=== PATIENT | male | born 1950 | race Hispanic/Latino ===

== ENCOUNTER 2017-05-23 08:10 | Day surgery (SDC) | payer OTHER, MEDICARE ==
[2017-05-21 15:35] VITALS: BP 145/56
[2017-05-21 15:38] LABS: BASOPHILS % (AUTO) 1.1 % (0.0-5.0); EOSINOPHILS % (AUTO) 4.3 % (0.0-8.0); HEMATOCRIT 36.6 % (42-54); LYMPHOCYTES % (AUTO) 29.6 % (21.0-51.0); MEAN CORPUSCULAR HEMOGLOBIN 33.2 pg (27.0-33.0); MEAN CORPUSCULAR HGB CONC 34.1 g/dL (32.0-36.0); MEAN CORPUSCULAR VOLUME 97.5 fL (79-99); MONOCYTES % (AUTO) 7.6 % (3.0-13.0); NEUTROPHILS % (AUTO) 57.4 % (40.0-77.0); NUCLEATED RED BLOOD CELLS 0.1 % (0.0-0.19); PLATELET COUNT (AUTO) 309 K/uL (130-400); RED BLOOD CELL COUNT(AUTO) 3.75 MIL/uL (4.50-6.20); RED CELL DISTRIBUTION WIDTH 13.9 % (11.0-15.5); WHITE BLOOD COUNT (AUTO) 7.4 K/uL (4.8-10.8)
[2017-05-21 16:14] LABS: CREATININE 1.2 mg/dL (0.5-1.5); POTASSIUM 4.3 mmol/L (3.5-5.1)
[2017-05-23] VITALS (18 sets, daily range): BP systolic 120–154; BP diastolic 48–84
[~2017-05-23] VITALS: Ht 190.5 cm; Wt 123.0 kg
[2017-05-23] MEDS: CEFTRIAXONE SODIUM 1 GM IVP SCH ×2 (06:00→11:07)
[~2017-05-23 08:10] MED LIST: LOSA1TAB54 PO; METF500T6 PO; METO50TA18 PO; PRAV10TA39 PO; SILO8CAP PO; iron PO
[2017-05-23] MEDS ORDERED: SODIUM CHLORIDE 0.9% 1000ML 1,000 ML IV ONE (09:13)
[2017-05-23] MEDS ORDERED: FENTANYL CITRATE PF 50 MCG/1 ML 2ML VIAL ONE ×3 (11:07→12:08)
[2017-05-23] MEDS ORDERED: MIDAZOLAM HCL 1 MG/ML 2ML VIAL ONE (11:07)
[2017-05-23] MEDS ORDERED: PROPOFOL 10 MG/ML 20ML VIAL IV ONE ×2 (11:07→11:27)
[2017-05-23] MEDS ORDERED: EPHEDRINE SULFATE 50 MG/ML AMPULE ONE (11:20)
[2017-05-23] MEDS ORDERED: MORPHINE SULFATE 10 MG/ML 1ML SYG ONE (11:22)
[2017-05-23] MEDS ORDERED: LIDOCAINE PF 2% 5ML ABBOJECT ONE (11:58)
[2017-05-23] MEDS ORDERED: MEPERIDINE-PF 25 MG/ML SYG ONE (13:13)
[2017-05-23] MEDS ORDERED: PHENAZOPYRIDINE HCL 200 MG TABLET ONE (14:21)
[2017-05-23] MEDS ORDERED: ACETAMINOPHEN-CODEINE 300/30MG TAB ONE (14:30)
== END 2017-05-23 15:40 | disposition home or self-care (01) ==
LOC: DAH 08:10
PROVIDERS: ATTEND Urology
DX: N35.9 Urethral stricture, unspecified (principal); I10 Essential (primary) hypertension; E11.9 Type 2 diabetes mellitus without complications; G89.29 Other chronic pain; Z79.899 Other long term (current) drug therapy; Z79.84 Long term (current) use of oral hypoglycemic drugs; I21.3 ST elevation (STEMI) myocardial infarction of unspecified site
CPT/HCPCS: 36415; 52281; 80048; 82948; 85025; 93005; A4218; A4354; A4358; A4510; A4600; C1769; J0696; J2001; J2175; J2250; J2270; J2704 ×2; J3010 ×3; J3490; J7030

== ENCOUNTER 2017-06-03 17:56 | Emergency (ER) | payer OTHER, MEDICARE | END 2017-06-03 18:27 | disposition home or self-care (01) | LOC: EDH 17:56 | DX: T83.091A Other mechanical complication of indwelling urethral catheter, initial encounter (principal); R33.9 Retention of urine, unspecified; I25.10 Atherosclerotic heart disease of native coronary artery without angina pectoris; E78.5 Hyperlipidemia, unspecified; I10 Essential (primary) hypertension; Z90.49 Acquired absence of other specified parts of digestive tract; Z98.890 Other specified postprocedural states; Z72.0 Tobacco use ==

== ENCOUNTER 2017-06-27 08:02 | Day surgery (SDC) | payer OTHER, MEDICARE ==
[2017-06-25 13:47] VITALS: BP 140/55
[2017-06-25 13:50] LABS: BASOPHILS % (AUTO) 0.8 % (0.0-5.0); EOSINOPHILS % (AUTO) 3.1 % (0.0-8.0); HEMATOCRIT 31.7 % (42-54); MEAN CORPUSCULAR HEMOGLOBIN 31.8 pg (27.0-33.0); MEAN CORPUSCULAR HGB CONC 33.8 g/dL (32.0-36.0); MONOCYTES % (AUTO) 12.3 % (3.0-13.0); NEUTROPHILS % (AUTO) 63.8 % (40.0-77.0); PLATELET COUNT (AUTO) 315 K/uL (130-400); RED BLOOD CELL COUNT(AUTO) 3.37 MIL/uL (4.50-6.20); RED CELL DISTRIBUTION WIDTH 14.5 % (11.0-15.5); WHITE BLOOD COUNT (AUTO) 7.1 K/uL (4.8-10.8)
[2017-06-25 13:56] LABS: CREATININE 1.2 mg/dL (0.5-1.5); POTASSIUM 3.4 mmol/L (3.5-5.1)
[~2017-06-27] VITALS: Ht 188 cm; Wt 123.4 kg
[2017-06-27] VITALS (17 sets, daily range): BP systolic 106–140; BP diastolic 48–66
[~2017-06-27 08:02] MED LIST changes: +CEFTRIAXONE SODIUM 1 GM IVP SCH
[2017-06-27] MEDS ORDERED: SODIUM CHLORIDE 0.9% 1000ML 1,000 ML IV ONE (08:51)
[2017-06-27] MEDS ORDERED: CEFTRIAXONE SODIUM 1 GM ONE (08:52)
[2017-06-27] MEDS ORDERED: PROPOFOL 10 MG/ML 20ML VIAL IV ONE (09:29)
[2017-06-27] MEDS ORDERED: FENTANYL CITRATE PF 50 MCG/1 ML 2ML VIAL ONE (09:29)
[2017-06-27] MEDS ORDERED: MIDAZOLAM HCL 1 MG/ML 2ML VIAL ONE (09:29)
[2017-06-27] MEDS ORDERED: EPHEDRINE SULFATE 50 MG/ML AMPULE ONE (09:45)
[2017-06-27] MEDS ORDERED: MEPERIDINE-PF 25 MG/ML SYG ONE ×2 (10:29→10:36)
[2017-06-27] MEDS ORDERED: CEPH500B PO (11:18)
[2017-06-27] MEDS ORDERED: PHEN-934 PO (11:18)
[2017-06-27] MEDS ORDERED: TYL3 PO (11:23)
[2017-06-27] MEDS ORDERED: PHENAZOPYRIDINE HCL 200 MG TABLET ONE (11:28)
== END 2017-06-27 12:07 | disposition home or self-care (01) ==
LOC: DAH 08:02
PROVIDERS: ATTEND Urology
DX: N35.9 Urethral stricture, unspecified (principal); R33.9 Retention of urine, unspecified; I10 Essential (primary) hypertension; E11.9 Type 2 diabetes mellitus without complications; G89.29 Other chronic pain; Z79.899 Other long term (current) drug therapy; I25.10 Atherosclerotic heart disease of native coronary artery without angina pectoris; E66.9 Obesity, unspecified
CPT/HCPCS: 36415 ×2; 52275; 80048; 82948 ×2; 84132; 85025; 93005; A4218; A4344; A4354; A4358; A4510; A4600; C1769; J0696; J2175 ×2; J2250; J2704; J3010; J3490; J7030

== ENCOUNTER → 2019-01-05 | Outpatient (CLI) | payer OTHER, MEDICARE ==
[~2019-01-05] MED LIST changes: -CEFTRIAXONE SODIUM 1 GM IVP SCH; +CEPH500B PO; +METF-444 PO; -METF500T6 PO; +PHEN-846 PO; -SILO8CAP PO; +SILO8CAP2 PO; +TYL3 PO
== END | disposition home or self-care (01) ==
LOC: RAH 11:10
PROVIDERS: ATTEND Internal Medicine Gastroenterology
DX: D50.0 Iron deficiency anemia secondary to blood loss (chronic) (principal); R63.4 Abnormal weight loss; R11.0 Nausea
CPT/HCPCS: 71046

== ENCOUNTER → 2019-04-20 | Outpatient (CLI) | payer OTHER, MEDICARE | END | disposition home or self-care (01) | LOC: RAH 12:03 | PROVIDERS: ATTEND Internal Medicine | DX: I70.203 Unspecified atherosclerosis of native arteries of extremities, bilateral legs (principal); R25.2 Cramp and spasm; R60.0 Localized edema | CPT/HCPCS: 93925; 93970 ==

== ENCOUNTER 2019-11-17 09:50 | Emergency (ER) | payer OTHER, MEDICARE | END 2019-11-17 10:15 | disposition left against medical advice (07) | LOC: EDH 09:50 | DX: R79.9 Abnormal finding of blood chemistry, unspecified (principal); I10 Essential (primary) hypertension; E78.5 Hyperlipidemia, unspecified; I25.10 Atherosclerotic heart disease of native coronary artery without angina pectoris; Z90.49 Acquired absence of other specified parts of digestive tract; Z98.890 Other specified postprocedural states; Z53.21 Procedure and treatment not carried out due to patient leaving prior to being seen by health care provider | CPT/HCPCS: 99281 ==

== ENCOUNTER 2020-12-12 18:44 | Observation (INO) | payer OTHER, MEDICARE ==
[~2020-12-12] VITALS: Ht 190.5 cm; Wt 122.5 kg
[2020-12-12 19:44] LABS: BASOPHILS % (AUTO) 0.9 % (0.0-5.0); EOSINOPHILS % (AUTO) 1.4 % (0.0-8.0); HEMATOCRIT 37.2 % (42-54); LYMPHOCYTES % (AUTO) 18.3 % (21.0-51.0); MEAN CORPUSCULAR HEMOGLOBIN 32.6 pg (27.0-33.0); MEAN CORPUSCULAR HGB CONC 32.8 g/dL (32.0-36.0); MEAN CORPUSCULAR VOLUME 99.5 fL (79-99); MONOCYTES % (AUTO) 8.9 % (3.0-13.0); PLATELET COUNT (AUTO) 207 K/uL (130-400); RED BLOOD CELL COUNT(AUTO) 3.74 MIL/uL (4.50-6.20); RED CELL DISTRIBUTION WIDTH 13.2 % (11.0-15.5); WHITE BLOOD COUNT (AUTO) 6.5 K/uL (4.8-10.8)
[2020-12-12 19:59] LABS: INR 1.06 (0.85-1.15); PROTHROMBIN TIME 11.5 SEC (9.6-11.6)
[2020-12-12 20:00] LABS: CREATININE 1.3 mg/dL (0.5-1.5); PARTIAL THROMBOPLASTIN TIME 24.9 SEC (26.3-35.5)
[2020-12-12 20:04] LABS: ALBUMIN 3.3 g/dL (3.5-5.0); B-TYPE NATRIURETIC PEPTIDE 165 pg/mL (0-100); BILIRUBIN,TOTAL 0.3 mg/dL (0.2-1.0); TOTAL PROTEIN, SERUM 6.5 g/dL (6.0-8.3)
[2020-12-12] MEDS ORDERED: IOHEXOL 350 MG/ML 100ML INFUS..BTL IV ONE (21:28)
[2020-12-12] MEDS ORDERED: 0.9% NACL 500ML IV.SOLN 500 ML IV ONE (21:30)
[2020-12-12] MEDS ORDERED: ACETAMINOPHEN 325 MG TAB PO PRN ×2 (23:30)
[2020-12-12] MEDS ORDERED: ONDANSETRON 4MG INJ IVP PRN (23:30)
[2020-12-13 00:38] LABS: APPEARANCE,URINE Clear (CLEAR); BILIRUBIN,URINE Negative (NEGATIVE); COLOR,URINE Dark Yellow (YELLOW); GLUCOSE, URINE (UA) Negative (NEGATIVE); KETONES,URINE Trace mg/dL (NEGATIVE); LEUKOCYTE ESTERASE ,URINE Moderate (NEGATIVE); NITRATE,URINE Negative (NEGATIVE); OCCULT BLOOD,URINE Negative (NEGATIVE); PH,URINE 5.5 (5.0-8.0); PROTEIN,URINE Trace mg/dL (NEGATIVE)
[2020-12-13 00:48] LABS: RBC,URINE 0-1 /HPF (0-1)
[2020-12-13 00:49] LABS: BACTERIA,URINE Few /HPF (None Seen); SQUAMOUS EPITHELIAL CELL,UR Moderate /HPF (0-2)
[2020-12-13 00:51] LABS: HYALINE CASTS, URINE 0-1 /LPF (0-1 /LPF)
[2020-12-13 01:08] LABS: AMPHET/METH SCREEN,URINE NEGATIVE (NEGATIVE); BARBITURATE SCREEN, URINE NEGATIVE (NEGATIVE); BENZODIAZEPINES SCREEN,URINE NEGATIVE (NEGATIVE); CANNABINOID SCREEN,URINE POSITIVE (NEGATIVE); COCAINE SCREEN,URINE NEGATIVE (NEGATIVE); OPIATE SCREEN,URINE NEGATIVE (NEGATIVE); PHENCYCLIDINE SCREEN,URINE NEGATIVE (NEGATIVE)
[2020-12-13] MEDS: INSULIN HUMULIN R 100 UNIT/ML 3ML SQ SCH ×2 (07:30→11:30)
[2020-12-13] MEDS ORDERED: LACTULOSE 20 GM/30 ML UDCUP PO PRN (09:00)
[2020-12-13] MEDS ORDERED: ONDANSETRON 4MG INJ IV PRN (09:00)
[2020-12-13] MEDS ORDERED: ACETAMINOPHEN 325 MG TAB PO PRN ×2 (09:00)
[2020-12-13] MEDS ORDERED: MAG/ALUM/SIMETH 30 ML UDCUP PO PRN (09:00)
[2020-12-13] MEDS ORDERED: 0.9%NACL 1000ML 1,000 ML IV SCH (09:00)
[2020-12-13] MEDS ORDERED: DiphenhydrAMINE HCL 50 MG/ML VIAL IV PRN (09:00)
[2020-12-13] MEDS ORDERED: ENOXAPARIN SODIUM 30 MG/0.3 ML SQ SCH (09:00)
[2020-12-13] MEDS ORDERED: DIPHENHYDRAMINE HCL 25 MG CAPSULE PO PRN (09:00)
[2020-12-13] MEDS ORDERED: AEC81 PO (09:18)
[2020-12-13] MEDS ORDERED: PRAV40TA3 PO (09:18)
[2020-12-13] MEDS ORDERED: FLUO20CA35 PO (09:18)
[2020-12-13] MEDS ORDERED: ESOM40CA54 PO (09:18)
[2020-12-13] MEDS ORDERED: MEMA10TA55 PO (09:18)
[2020-12-13] MEDS ORDERED: FERR324T4 PO (09:18)
[2020-12-13] MEDS ORDERED: TAMS-1 PO (09:18)
[2020-12-13] MEDS ORDERED: VITA1CAP PO (09:18)
[2020-12-13] MEDS ORDERED: FLUT1BLS15 IH (09:18)
[2020-12-13] MEDS ORDERED: CALC-125 PO (09:18)
[2020-12-13] MEDS ORDERED: NITR0.4T50 SL (09:18)
[2020-12-13] MEDS ORDERED: OLME20TA22 PO ×2 (09:18→15:00)
[2020-12-13] MEDS ORDERED: ALBU8.5H8 IH (09:18)
[2020-12-13] MEDS ORDERED: CPAP NS (09:19)
[2020-12-13] MEDS ORDERED: LIDOCAINE HCL-MPF 1% 2ML VIAL IV PRN (09:30)
[2020-12-13] MEDS ORDERED: POTASSIUM CHLORIDE 10% ELIXIR 20 MEQ/15 ML UDCUP PO PRN (09:30)
[2020-12-13] MEDS ORDERED: KCL 20 MEQ ERTAB PO PRN (09:30)
[2020-12-13] MEDS ORDERED: GLUCAGON 1MG KIT 1 MG ML IM PRN (09:30)
[2020-12-13] MEDS ORDERED: DEXTROSE 50%-WATER 50 ML DISP.SYRIN IV PRN (09:30)
[2020-12-13] MEDS ORDERED: POTASSIUM CHLORIDE 20MEQ/100ML 100 ML IV PRN (09:30)
[2020-12-13] MEDS ORDERED: INSULIN HUMULIN R 100 UNIT/ML 3ML SQ SCH (11:30)
[2020-12-13 11:54] VITALS: BP 149/64
[2020-12-13] MEDS ORDERED: ALBUTEROL INHALER 90MCG/INH IH PRN (14:00)
[2020-12-13] MEDS ORDERED: NITROGLYCERIN 0.4 MG SL TAB SL PRN (14:00)
[2020-12-13] MEDS ORDERED: FERROUS SULFATE 325 MG TABLET.DR PO SCH (21:00)
[2020-12-14] MEDS ORDERED: FLUOXETINE HCL 20 MG CAPSULE PO SCH (09:00)
[2020-12-14] MEDS ORDERED: METFORMIN HCL 500 MG TABLET PO SCH (09:00)
[2020-12-14] MEDS ORDERED: CALCIUM CARB 500MG PO SCH (09:00)
[2020-12-14] MEDS ORDERED: VITAMIN B COMPLEX 1 CAPSULE PO SCH (09:00)
[2020-12-14] MEDS ORDERED: PANTOPRAZOLE 40 MG TAB DR PO SCH (09:00)
[2020-12-15] MEDS ORDERED: ASPIRIN 81 MG EC TAB PO SCH (09:00)
== END 2020-12-13 16:20 | disposition home or self-care (01) ==
LOC: EDH 18:44 → EDHIP 22:57
PROVIDERS: ADMIT Internal Medicine; ATTEND Internal Medicine
DX: R55 Syncope and collapse (principal); Z20.822 Contact with and (suspected) exposure to COVID-19; G47.30 Sleep apnea, unspecified; E78.2 Mixed hyperlipidemia; I13.0 Hypertensive heart and chronic kidney disease with heart failure and stage 1 through stage 4 chronic kidney disease, or unspecified chronic kidney disease; I50.32 Chronic diastolic (congestive) heart failure; N18.2 Chronic kidney disease, stage 2 (mild); E11.22 Type 2 diabetes mellitus with diabetic chronic kidney disease; I25.10 Atherosclerotic heart disease of native coronary artery without angina pectoris; I42.9 Cardiomyopathy, unspecified; E11.42 Type 2 diabetes mellitus with diabetic polyneuropathy; E11.40 Type 2 diabetes mellitus with diabetic neuropathy, unspecified; I48.0 Paroxysmal atrial fibrillation; D68.59 Other primary thrombophilia; M48.9 Spondylopathy, unspecified; M48.062 Spinal stenosis, lumbar region with neurogenic claudication; N40.0 Benign prostatic hyperplasia without lower urinary tract symptoms; G47.00 Insomnia, unspecified; D64.9 Anemia, unspecified; R32 Unspecified urinary incontinence; I95.9 Hypotension, unspecified; I70.90 Unspecified atherosclerosis; F11.20 Opioid dependence, uncomplicated; F32.9 Major depressive disorder, single episode, unspecified; E78.00 Pure hypercholesterolemia, unspecified; R00.1 Bradycardia, unspecified; D09.19 Carcinoma in situ of other urinary organs; F11.21 Opioid dependence, in remission; F17.200 Nicotine dependence, unspecified, uncomplicated; C64.1 Malignant neoplasm of right kidney, except renal pelvis; D50.9 Iron deficiency anemia, unspecified; G31.9 Degenerative disease of nervous system, unspecified; G95.9 Disease of spinal cord, unspecified; I25.2 Old myocardial infarction; I70.0 Atherosclerosis of aorta; J44.9 Chronic obstructive pulmonary disease, unspecified; M48.061 Spinal stenosis, lumbar region without neurogenic claudication; M54.16 Radiculopathy, lumbar region; M96.1 Postlaminectomy syndrome, not elsewhere classified; Z79.899 Other long term (current) drug therapy; Z98.890 Other specified postprocedural states; Z79.84 Long term (current) use of oral hypoglycemic drugs; Z79.82 Long term (current) use of aspirin; Z85.528 Personal history of other malignant neoplasm of kidney; Z90.49 Acquired absence of other specified parts of digestive tract; Z98.42 Cataract extraction status, left eye
CPT/HCPCS: 36415 ×2; 70450; 71045; 71275; 80053; 80305; 81001; 82550 ×2; 82948 ×2; 83735; 83874; 83880; 84484 ×2; 85025; 85378; 85610; 85730; 87077; 87088; 87186; 87635; 93005; 93880; 96360; 96361; 96372; 99285; C9803; G0378 ×7; J1650; J7030; J7040; Q9967

== ENCOUNTER → 2021-10-09 | Outpatient (CLI) | payer OTHER, MEDICARE ==
[~2021-10-09] MED LIST changes: +AEC81 PO; +ALBU8.5H8 IH; +CALC-125 PO; -CEPH500B PO; +CPAP NS; +ESOM40CA54 PO; +FERR324T4 PO; +FLUO20CA36 PO; +FLUT1BLS15 IH; -LOSA1TAB54 PO; +MEMA10TA55 PO; -METF-444 PO; -METO50TA18 PO; +NITR0.4T50 SL; +OLME20TA22 PO; -PHEN-846 PO; -PRAV10TA39 PO; +PRAV40TA3 PO; -SILO8CAP2 PO; +TAMS-1 PO; -TYL3 PO; +VITA1CAP PO; -iron PO
== END | disposition home or self-care (01) ==
LOC: RAH 10:34
PROVIDERS: ATTEND Internal Medicine
DX: J44.9 Chronic obstructive pulmonary disease, unspecified (principal)
CPT/HCPCS: 71046

== ENCOUNTER 2022-10-21 07:48 | Day surgery (SDC) | payer OTHER, MEDICARE ==
[2022-10-17 12:58] LABS: BASOPHILS # (AUTO) 0.05 K/uL (0.00-0.20); BASOPHILS % (AUTO) 0.9 % (0.0-5.0); EOSINOPHILS # (AUTO) 0.13 K/uL (0.00-0.70); EOSINOPHILS % (AUTO) 2.3 % (0.0-8.0); HEMATOCRIT 40.9 % (42-54); IMMATURE GRANULOCYTE ABSOLUTE 0.04 K/uL (0-1); LYMPHOCYTES # (AUTO) 1.2 K/uL (1.0-4.8); MONOCYTES # (AUTO) 0.5 K/uL (0.1-1.0); MONOCYTES % (AUTO) 8.8 % (3.0-13.0); NEUTROPHILS # (AUTO) 3.8 K/uL (1.8-7.7); NEUTROPHILS % (AUTO) 66.3 % (40.0-77.0); PLATELET COUNT (AUTO) 212 K/uL (130-400); RED BLOOD CELL COUNT(AUTO) 4.09 MIL/uL (4.50-6.20); RED CELL DISTRIBUTION WIDTH 12.7 % (11.0-15.5); WHITE BLOOD COUNT (AUTO) 5.7 K/uL (4.8-10.8)
[2022-10-17 13:10] LABS: CREATININE 0.9 mg/dL (0.5-1.5); INR 0.94 (0.85-1.15); POTASSIUM 4.1 mmol/L (3.5-5.1)
[2022-10-17 13:11] LABS: PARTIAL THROMBOPLASTIN TIME 29.5 SEC (26.3-35.5)
[2022-10-17 13:24] LABS: APPEARANCE,URINE CLEAR (CLEAR); BILIRUBIN,URINE NEGATIVE (NEGATIVE); COLOR,URINE LIGHT-YELLOW (YELLOW); GLUCOSE, URINE (UA) NEGATIVE (NEGATIVE); KETONES,URINE NEGATIVE (NEGATIVE); LEUKOCYTE ESTERASE ,URINE 75 Leu/uL (NEGATIVE); NITRATE,URINE NEGATIVE (NEGATIVE); OCCULT BLOOD,URINE NEGATIVE (NEGATIVE); PH,URINE 6.5 (5.0-8.0); PROTEIN,URINE NEGATIVE (NEGATIVE); UROBILINOGEN,URINE 0.2 mg/dL (0.2-1.0)
[2022-10-17 13:30] LABS: ADD UA MICROSCOPIC YES
[2022-10-17 13:35] LABS: SQUAMOUS EPITHELIAL CELL,UR RARE /HPF (0-2)
[2022-10-17 14:04] LABS: B-TYPE NATRIURETIC PEPTIDE 155 pg/mL (0-100)
[2022-10-17 14:12] VITALS: BP 152/74; PULSE 63; RESP 18
[~2022-10-21] VITALS: Ht 188 cm; Wt 127.6 kg
[2022-10-21] VITALS (11 sets, daily range): BP systolic 152–174; BP diastolic 52–68; PULSE 44–83; RESP 12–20
[~2022-10-21 07:48] MED LIST changes: -AEC81 PO; -ALBU8.5H8 IH; -CALC-125 PO; -CPAP NS; +CYAN10007 IJ; -ESOM40CA54 PO; +FERR-72 PO; -FERR324T4 PO; -FLUO20CA36 PO; -FLUT1BLS15 IH; +FURO40TA5 PO; +LINA5TAB PO; +LOSA25TA41 PO; -NITR0.4T50 SL; -OLME20TA22 PO; +PANT40TA55 PO; +POTA-364 PO; -VITA1CAP PO
[2022-10-21] MEDS ORDERED: IOPAMIDOL-370 100 ML VIAL IV ONE (07:49)
[2022-10-21] MEDS ORDERED: 0.9%NACL 1000ML 1,000 ML IV ONE (09:28)
[2022-10-21] MEDS ORDERED: MEPERIDINE-PF 25 MG/ML SYG ONE (09:39)
[2022-10-21] MEDS ORDERED: NITROGLYCERIN 50MG VIAL ONE (09:39)
[2022-10-21] MEDS ORDERED: SODIUM BICARB 50MEQ 50ML VIAL 50 ML ONE (09:39)
[2022-10-21] MEDS ORDERED: HEPARIN 10,000 UNIT/10ML (1,000 UNIT/ML) VIAL ONE (09:39)
[2022-10-21] MEDS ORDERED: LIDOCAINE HCL 400MG/20ML VIAL ONE (09:39)
[2022-10-21] MEDS ORDERED: MIDAZOLAM HCL 1 MG/ML 2ML VIAL ONE (09:39)
[2022-10-21] MEDS ORDERED: GLUCAGON 1MG KIT 1 MG ML IM PRN (11:00)
[2022-10-21] MEDS ORDERED: DEXTROSE 50%-WATER 50 ML DISP.SYRIN IV PRN (11:00)
[2022-10-21] MEDS ORDERED: 0.9%NACL 1000ML 1,000 ML IV SCH (11:00)
[2022-10-21] MEDS ORDERED: INSULIN HUMULIN R 100 UNIT/ML 3ML SQ SCH (11:30)
== END 2022-10-21 17:10 | disposition home or self-care (01) ==
LOC: DAH 07:48
PROVIDERS: ATTEND Internal Medicine Cardiovascular Disease
DX: I35.0 Nonrheumatic aortic (valve) stenosis (principal); I25.10 Atherosclerotic heart disease of native coronary artery without angina pectoris; I25.82 Chronic total occlusion of coronary artery; I11.0 Hypertensive heart disease with heart failure; I50.32 Chronic diastolic (congestive) heart failure; E11.9 Type 2 diabetes mellitus without complications; F17.200 Nicotine dependence, unspecified, uncomplicated; J44.9 Chronic obstructive pulmonary disease, unspecified; G47.33 Obstructive sleep apnea (adult) (pediatric); I25.2 Old myocardial infarction; Z98.890 Other specified postprocedural states; Z86.010 Personal history of colon polyps; Z90.49 Acquired absence of other specified parts of digestive tract; Z82.3 Family history of stroke; Z79.899 Other long term (current) drug therapy; Z79.01 Long term (current) use of anticoagulants
CPT/HCPCS: 80048; 83880; 85025; 85610; 85730; 87088; 81001; 36415; 71045; 93005; 93460; 82948; C1769 ×2; C1894 ×3; C1760; C1893; Q9967; J3490 ×3; J7030; J2250; J2175; J1644; A4215; A4222; A4221; A4663; A4216; A4606; A4223 ×3; 99156; 99157

== ENCOUNTER 2023-01-06 20:20 | Emergency (ER) | payer OTHER, MEDICARE ==
[~2023-01-06] VITALS: Ht 190.5 cm; Wt 136.1 kg
[~2023-01-06 20:20] MED LIST changes: +AEC81 PO; +AMIO200T68 PO; +ATOR40TA71 PO; -FURO40TA5 PO; +FURO40TA7 PO; +METO25TA6 PO; +POLY17PO4 PO; -PRAV40TA3 PO
[2023-01-06 20:38] LABS: BASOPHILS # (AUTO) 0.05 K/uL (0.00-0.20); BASOPHILS % (AUTO) 0.8 % (0.0-5.0); EOSINOPHILS % (AUTO) 4.9 % (0.0-8.0); HEMATOCRIT 27.3 % (42-54); IMMATURE GRANULOCYTE ABSOLUTE 0.06 K/uL (0-1); LYMPHOCYTES # (AUTO) 1.9 K/uL (1.0-4.8); LYMPHOCYTES % (AUTO) 30.8 % (21.0-51.0); MEAN CORPUSCULAR HEMOGLOBIN 29.6 pg (27.0-33.0); MEAN CORPUSCULAR HGB CONC 29.3 g/dL (32.0-36.0); MEAN CORPUSCULAR VOLUME 101.1 fL (79-99); MONOCYTES # (AUTO) 0.6 K/uL (0.1-1.0); MONOCYTES % (AUTO) 10.2 % (3.0-13.0); NEUTROPHILS # (AUTO) 3.2 K/uL (1.8-7.7); NEUTROPHILS % (AUTO) 52.3 % (40.0-77.0); PLATELET COUNT (AUTO) 139 K/uL (130-400); RED CELL DISTRIBUTION WIDTH 14.1 % (11.0-15.5); WHITE BLOOD COUNT (AUTO) 6.2 K/uL (4.8-10.8)
[2023-01-06 20:48] LABS: CREATININE 1.8 mg/dL (0.5-1.5); POTASSIUM 3.3 mmol/L (3.5-5.1)
[2023-01-06 20:50] LABS: APPEARANCE,URINE CLEAR (CLEAR); BILIRUBIN,URINE NEGATIVE (NEGATIVE); COLOR,URINE COLORLESS (YELLOW); GLUCOSE, URINE (UA) 500 mg/dL (NEGATIVE); KETONES,URINE NEGATIVE (NEGATIVE); LEUKOCYTE ESTERASE ,URINE NEGATIVE Leu/uL (NEGATIVE); NITRATE,URINE NEGATIVE (NEGATIVE); OCCULT BLOOD,URINE NEGATIVE (NEGATIVE); PH,URINE 6.5 (5.0-8.0); PROTEIN,URINE NEGATIVE (NEGATIVE); UROBILINOGEN,URINE 0.2 mg/dL (0.2-1.0)
[2023-01-06 20:51] LABS: ADD UA MICROSCOPIC YES
[2023-01-06 20:53] LABS: BACTERIA,URINE RARE /HPF (None Seen); MUCUS,URINE RARE LPF (None Seen); RBC,URINE 0-1 /HPF (0-1); SQUAMOUS EPITHELIAL CELL,UR RARE /HPF (0-2); WBC,URINE 0-1 /HPF (0-1)
[2023-01-06 20:54] LABS: ALBUMIN 3.3 g/dL (3.5-5.0); BILIRUBIN,TOTAL 0.3 mg/dL (0.2-1.0); TOTAL PROTEIN, SERUM 7.2 g/dL (6.0-8.3)
[2023-01-06 20:57] LABS: B-TYPE NATRIURETIC PEPTIDE 919 pg/mL (0-100)
[2023-01-06] MEDS ORDERED: MECLIZINE HCL 25 MG TABLET PO ONE (21:00)
[2023-01-06] MEDS ORDERED: POTASSIUM BICARB/CIT AC 25 MEQ TABLET.EFF PO ONE (22:30)
[2023-01-06 22:39] LABS: MAGNESIUM 2.3 mg/dL (1.80-2.40); THYROID STIMULATING HORMONE 83.76 uIU/mL (0.36-3.74)
[2023-01-06] MEDS ORDERED: LEVO25TA9 PO (23:02)
[2023-01-06 23:38] VITALS: BP 137/73; PULSE 56; RESP 14; O2SAT 99
== END 2023-01-06 23:40 | disposition home or self-care (01) ==
LOC: EDH 20:20
DX: E87.6 Hypokalemia (principal); E03.9 Hypothyroidism, unspecified; F17.200 Nicotine dependence, unspecified, uncomplicated; I25.10 Atherosclerotic heart disease of native coronary artery without angina pectoris; Z79.82 Long term (current) use of aspirin; Z79.899 Other long term (current) drug therapy; Z95.1 Presence of aortocoronary bypass graft
CPT/HCPCS: 36415; 70450; 71045; 80053; 81001; 82550; 83605; 83735; 83874; 83880; 84443; 84484; 85025; 93005

== ENCOUNTER 2024-01-16 06:33 | Day surgery (SDC) | payer OTHER, MEDICARE ==
[2024-01-14 11:22] VITALS: BP 127/56; PULSE 51; RESP 18; TEMP 98.4
[2024-01-14 11:50] LABS: BASOPHILS # (AUTO) 0.06 K/uL (0.00-0.20); BASOPHILS % (AUTO) 0.9 % (0.0-5.0); EOSINOPHILS # (AUTO) 0.22 K/uL (0.00-0.70); EOSINOPHILS % (AUTO) 3.3 % (0.0-8.0); HEMATOCRIT 39.6 % (42-54); IMMATURE GRANULOCYTE ABSOLUTE 0.02 K/uL (0-1); LYMPHOCYTES # (AUTO) 1.4 K/uL (1.0-4.8); LYMPHOCYTES % (AUTO) 20.3 % (21.0-51.0); MEAN CORPUSCULAR HEMOGLOBIN 32.1 pg (27.0-33.0); MEAN CORPUSCULAR HGB CONC 31.6 g/dL (32.0-36.0); MEAN CORPUSCULAR VOLUME 101.5 fL (79-99); MONOCYTES # (AUTO) 0.5 K/uL (0.1-1.0); MONOCYTES % (AUTO) 7.1 % (3.0-13.0); NEUTROPHILS # (AUTO) 4.5 K/uL (1.8-7.7); NEUTROPHILS % (AUTO) 68.1 % (40.0-77.0); PLATELET COUNT (AUTO) 200 K/uL (130-400); RED CELL DISTRIBUTION WIDTH 13.6 % (11.0-15.5); WHITE BLOOD COUNT (AUTO) 6.7 K/uL (4.8-10.8)
[2024-01-14 12:02] LABS: CREATININE 1.5 mg/dL (0.5-1.3); POTASSIUM 4.1 mmol/L (3.5-5.1)
--- NOTE | 2024-01-14 14:18 | EKG ---
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
[2024-01-16] VITALS (17 sets, daily range): BP systolic 112–152; BP diastolic 46–75; PULSE 51–92; RESP 15–21; TEMP 97.1–97.5
[~2024-01-16] VITALS: Ht 190.5 cm; Wt 124.4 kg
[~2024-01-16 06:33] MED LIST changes: +MEMA10TA21 PO; -MEMA10TA55 PO
[2024-01-16] MEDS: cefTRIAXone 1G VIAL ONE (07:36)
[2024-01-16] MEDS ORDERED: IOHEXOL-350 50ML VIAL IV ONE (08:55)
[2024-01-16] MEDS ORDERED: SUCCINYLCHOLINE CHLORIDE 20 MG/ML 10 ML VIAL ONE (09:40)
[2024-01-16] MEDS ORDERED: dexaMETHasone SOD PHOSPHATE 10MG/ML 1ML VIAL ONE (09:40)
[2024-01-16] MEDS ORDERED: LIDOCAINE PF 100MG/5ML (2%) SYRINGE 5ML ONE (09:40)
[2024-01-16] MEDS ORDERED: GLYCOPYRROLATE 0.2 MG/ML 5 ML VIAL ONE (09:40)
[2024-01-16] MEDS ORDERED: NEOSTIGMINE METHYLSULFATE 1MG/ML IV ONE (09:41)
[2024-01-16] MEDS ORDERED: FENTanyl CITRate PF 50 MCG/1 ML 2ML VIAL ONE (09:41)
[2024-01-16] MEDS ORDERED: proPOFol 10 MG/ML 20ML VIAL IV ONE ×2 (09:41→10:38)
[2024-01-16] MEDS ORDERED: rocuRONium bROMide 10MG/1ML 5ML VL ONE (09:41)
[2024-01-16] MEDS ORDERED: ePHEDrine SULFate 50 MG/ML AMPULE ONE (09:59)
[2024-01-16] MEDS ORDERED: ATROPINE 0.4MG VIAL IJ ONE (10:06)
[2024-01-16] MEDS ORDERED: MEPERIDINE-PF 25 MG/ML SYG ONE (10:42)
[2024-01-16] MEDS: 0.9%NACL 1000ML 1,000 ML IV ONE (10:57)
--- NOTE | 2024-01-16 12:02 | HMCIMG ---
UROGRAPHY RETROGRADE REASON: LT hydronephrosis,Cysto COMPARISON: None TECHNIQUE: 16 surgical spot views obtained documenting left sided retrograde ureteral procedure with stent placement. Fluoroscopy time was 4.5 minutes. IMPRESSION: 1. Documentation of left retrograde ureteral procedure with stent placement.
[2024-01-16] MEDS: PHENAZOpyridine HCL 200 MG TAB 200 MG TABLET PO ONE (12:33)
--- NOTE | 2024-01-16 12:44 | NUR ---
Patient aox4. Denies c/o pain or discomfort. Purcell Catheter clean, dry and intact. Leg bag applied securely attached to velco strap from OR. Purcell teaching and care completed with Patient and Daughter. All questions answered. Voiced understanding to precautions and follow up expectations. PIV discontinued with catheter tip intact. Full and complete Discharge instructions given to Patient and Daughter All questions answered. W/C to POV with Daughter to Home.
--- NOTE | 2024-01-17 00:46 | OP ---
DATE OF PROCEDURE: 01/16/2024 PREOPERATIVE DIAGNOSES: Left hydroureteronephrosis, history of right renal cell carcinoma, acute kidney injury. PREOPERATIVE DIAGNOSES: Left hydroureteronephrosis, history of right renal cell carcinoma, acute kidney injury, glanular hypospadias, left bladder diverticulum and benign prostatic hypertrophy. PROCEDURE PERFORMED: Cystourethroscopy, left retrograde pyelogram, insertion of left ureteral stent (30 cm x 6-Swazi). ANESTHESIA: General endotracheal anesthesia. SURGEON: Delaney Lamas M.D. PREOPERATIVE INDICATIONS: This is a 73-year-old gentleman who has been a longstanding patient. He was found to have a kidney tumor of the right renal unit which he was treated with cryosurgery successfully. On surveillance studies that being a renal sonogram, the patient was noted to have hydronephrosis of the left renal unit. A CT scan was performed which revealed tunneling of the dilatation to the level of the bladder neck. The patient had a tortuosity of the ureter and dilatation of the complete collecting system without any evidence of obstruction. There was no external compression and no stone or tumor visible on the CT scan. He presents today for investigation. His PSA has been 0.3 on last evaluation and his creatinine was 1.1 with a GFR of 62; however on day of surgery, his creatinine had increased to 1.5 and his filtration rate had decreased to 48. Preoperatively, he received Rocephin 1 g intravenously. Additionally, the patient denies any left flank pain or tenderness. He does have chronic lower back pain. DESCRIPTION OF PROCEDURE: The patient was brought to the operating room and placed in the supine position. Following adequate general endotracheal anesthesia, he was sterilely draped and prepped in the usual fashion in the dorsal lithotomy position. ZAC hose and Venodyne stockings were placed on his lower extremities bilaterally and all pressure points were padded. The patient was noted to have a glanular hypospadias and underwent urethral dilation with Maryann sounds to 22-Swazi. A 22-Swazi scope was then inserted per urethra and negotiated into the bladder. The patient was noted to have obstructive prostatism with lateral hypertrophy. Moving into the bladder, he did have diffuse trabeculations. The patient was noted to have some sediment in the bladder and this was copiously irrigated using an OpGen nail welter. The ureteral orifice was not identified using a 30-degree angled scope. There were no bladder tumors noted and no stones. The scope was then exchanged for a 70-degree angled scope and the left ureteral orifice was noted to be located in the posterior inferior portion of the bladder diverticulum. A 5-Swazi open-ended catheter was then positioned through the ureteral orifice and contrast was injected in retrograde fashion. Under fluoroscopic visualization, the patient was noted to have a significantly dilated left ureter confirming the CT scan findings with tortuosity of the ureter. Advancing the 5-Swazi open-ended catheter was unsuccessful and an angle-tipped Glidewire was then coaxially placed through the open-ended catheter size was negotiated through these hairpin turns and advanced into the patient's left renal unit. The patient was repositioned in the Trendelenburg position to help facilitate the advancement of the wire proximally. The 5-Swazi open-ended was then pushed over the guidewire and the Glidewire was exchanged for a more stiff guidewire that being a 0.83 Schroeder wire. Following this, the open-ended catheter was removed and 30 cm x 6-Swazi ureteral stent was coaxially placed under direct fluoroscopic visualization. This was exactly the right length and there was no extra stent, it was a perfect fit. Copious irrigation was repeated and reinspection of the bladder again confirmed no bladder tumors, foreign bodies or stones. I have no explanation for this patient's sudden change and the drainage of his left kidney, except for that perhaps his obstructive prostatism, this is significant enough that the diverticulum becomes dilated and compresses the distal ureter. I have discussed these findings with the patient's sister, Mary Jo and he was transported to the recovery room in stable condition. A Purcell catheter was inserted at the end of the procedure that being a 16-Swazi catheter with 10 mL instilled into the balloon. This will be removed on Friday, 01/18. A followup appointment 2-3 weeks later will be scheduled at which time repeat studies of his BUN and creatinine will be obtained to see if these return to their normal level following stent insertion. TID: [id number] RECEIPT: [id number]
== END 2024-01-16 12:35 | disposition home or self-care (01) ==
LOC: DAH 06:33
PROVIDERS: ATTEND Urology
DX: N13.30 Unspecified hydronephrosis (principal); C64.9 Malignant neoplasm of unspecified kidney, except renal pelvis; N17.9 Acute kidney failure, unspecified; N40.0 Benign prostatic hyperplasia without lower urinary tract symptoms; N32.3 Diverticulum of bladder; I10 Essential (primary) hypertension; E11.9 Type 2 diabetes mellitus without complications; G89.29 Other chronic pain; Z79.01 Long term (current) use of anticoagulants; Z95.1 Presence of aortocoronary bypass graft; Z79.84 Long term (current) use of oral hypoglycemic drugs; Z98.890 Other specified postprocedural states; Z79.899 Other long term (current) drug therapy
CPT/HCPCS: 80048; 85025; 36415; 93005; 52332; 82948 ×2; 74420; A6260; A4663; A4354; C1758; C2617; J3010; J1100; J0330; J7030; J0461; J3490 ×3; J2003; J0696; J2704 ×2; J2710; J2175; Q9967; A4358 ×2; C1769; A4215; A4213; A4222; A4221; A4216; A4510; A4223 ×2; A4600

== ENCOUNTER → 2025-01-11 | Outpatient (CLI) | payer OTHER, MEDICARE ==
[~2025-01-11] MED LIST changes: -AMIO200T68 PO; +AMIO200T73 PO; -TAMS-1 PO; +TAMS-55 PO
--- NOTE | 2025-01-12 05:43 | HMCIMG ---
EXAM: CR Chest, 1 views. CLINICAL HISTORY: Cough. COMPARISON: None provided. FINDINGS: The lungs show no infiltrate or other acute findings. No pleural effusion or pneumothorax. The cardiomediastinal silhouette is within normal limits. Radio-opaque sternal sutures are noted. No acute osseous abnormality. IMPRESSION: 1. No acute cardiopulmonary pathology is evident. /[place]
== END | disposition home or self-care (01) ==
LOC: RAH 10:57
PROVIDERS: ATTEND Internal Medicine
DX: Z01.818 Encounter for other preprocedural examination (principal); J44.9 Chronic obstructive pulmonary disease, unspecified
CPT/HCPCS: 71046